=== PATIENT | male | born 1990 | race Caucasian/White ===

== ENCOUNTER 2016-09-05 11:45 | Emergency (ER) | payer OTHER ==
--- NOTE | 2016-09-05 13:41 | ED CLINICAL REPORT ---
Clinical Report - Physicians/Mid Levels [facility] [address] [place] [address] 09/05/2016 11:51 Patient: JANY CONTRERAS JR Time Seen: 13:51 Sep 05 2016. Arrived- By private vehicle. Historian- patient. HISTORY OF PRESENT ILLNESS Chief Complaint: COUGH. 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 The illness is described as mild. The patient has had a cough, a sore throat and nasal congestion. No fever or chills. (Patient reports generalized hot and cold flushes, rhinorrhea times congestion, and time sore throat, with a dry cough over the last 2 days.). Additional history - The patient has had contact with a sick individual. (family). REVIEW OF SYSTEMS No headache, nausea, diarrhea, hay fever or skin rash. All systems otherwise negative, except as recorded above. SOCIAL HISTORY Smoker- current status unknown. Alcohol use. History of drug use. ADDITIONAL NOTES The nursing notes have been reviewed. PHYSICAL EXAM Vital Signs: 09/05/2016 13:22 BP: 131/75. HR: 51. RR: 18. O2 saturation: 98%. Temp: 97.9 F. Pain level now: 0/10. Appearance: Alert. Eyes: Eyes normal inspection. ENT: Ears normal. Nose normal. Pharynx normal. Uvula midline. No tonsillar exudate, peritonsillar mass or muffled or hoarse voice. Neck: Normal inspection. No lymphadenopathy. CVS: Normal heart rate and rhythm. Heart sounds normal. Respiratory: No respiratory distress. Breath sounds normal. No retractions or splinting. Skin: Skin warm. Normal skin color. PROGRESS AND PROCEDURES Course of Care: Afebrile patient in the ER, with good saturation, no distress. Stable. To follow up outpatient. Lungs clear. No signs of pneumonia. No indication for further acute tx, viral eitology, at this time less likely influenza given obvious fevers. 09/05/2016 13:22 BP: 131/75. HR: 51. RR: 18. O2 saturation: 98%. Temp: 97.9 F. Pain level now: 0/10. Patient is stable. Physical exam findings are improved. Symptoms better. Patient/family counseled. Disposition: Discharged. CLINICAL IMPRESSION Acute rhinitis. INSTRUCTIONS Rest. Return to work (may return to work 09/06/2016 or 09/05/2016 after 3 pm). Drink plenty of fluids. Do not smoke. ( [facility]). OTC Medications: Take OTC medications according to label instructions. Available over the counter. Acetaminophen (available over the counter): take according to label instructions. Motrin (available over the counter): take according to label instructions. Follow-up: Follow up with your doctor in three days. (Electronically signed by Lilian Lott P.A.-C 09/05/2016 14:08)
--- NOTE | 2016-09-05 13:41 | ED NURSING NOTES ---
Clinical Report - Nurses [facility] [address] [place] [address] 09/05/2016 11:51 Patient: JANY CONTRERAS JR TRIAGE Triage time 1322 PM. Acuity: LEVEL 4. Chief Complaint: "FLU", COUGH, SORE THROAT and BODY ACHES and known FLU EXPOSURE. Alert. No acute distress. BRONSON COMA SCORE: [place] Coma Scale: 15- eyes open spontaneously (4); best verbal response- oriented x 4 (5); best motor response- obeys commands (6). --13:34 Elisa Marion R.N. 13:22 09/05/16. BP: 131/75 (large adult cuff) taken on the left arm, via an automated monitor, while sitting. HR: 51. RR: 18. O2 saturation: 98% on room air. Temp: 97.9 F (oral). Pain level now: 0/10. --13:34 Elisa Marion R.N. Weight: 121.5 kg stated. Height/Length: 71 inches Per Patient. BMI: 37.4. --13:27 Elisa Marion R.N. Medications None. --13:25 Elisa Marion R.N. Medication/allergy information source: the patient. --13:34 Elisa Marion R.N. Allergies Nasal sprau unsure of the name. --13:24 Elisa Marion R.N. History Arrived by private vehicle. Historian: patient. ( Pt states feeling like coming down with the "flu, grandparents have bronchitis and the flu" Pt states symptoms started two days ago, body aches, sweating, unsure if his had a fever, abdominal pain, n/ no vomiting. Coming in to get check out.). Onset was abrupt. (2 days). He has had chest congestion, chills, fatigue, a headache and abdominal pain. 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 SOCIAL HX: Light tobacco smoker- less than 1/2 a pack per day. Heavy alcohol use; consumes 12-pack of beer a day. History of occasional drug use: marijuana. No recent travel. He has had contact with a sick family member with confirmed "flu". (grandparents one has flu and bronchitis). SELF HARM ASSESSMENT: A self harm assessment was performed. The patient answered "no" to the question "Do you have thoughts of harming or killing yourself?" and "Have you recently had thoughts about harming or killing others?". FALL RISK ASSESSMENT: Fall risk assessment completed. No fall risk identified. NUTRITIONAL RISK ASSESSMENT: The nutritional risk assessment revealed no deficiencies. FUNCTIONAL ASSESSMENT: Functional assessment: no impairments noted. LEARNING NEEDS ASSESSMENT: The learning needs assessment revealed no barriers. SKIN INTEGRITY ASSESSMENT: Skin integrity risk assessment completed. No skin integrity risk identified. --13:34 Elisa Marion R.N. PROBLEMS: Migraine Headache. --13:26 Elisa Marion R.N. Interventions ID band on patient. --13:34 Elisa Marion R.N. PHYSICAL ASSESSMENT GENERAL / NEURO / PSYCH: Alert. Oriented X 4. Appears in no acute distress. HEENT: Pupils equal, round and reactive to light. Mucous membranes are pink. RESPIRATORY: Nonproductive cough. Chest nontender. Breath sounds within normal limits. CVS: Capillary refill less than 2 seconds. SKIN: Skin is warm and dry. Normal skin turgor. --13:35 Elisa Marion R.N. NURSING PROGRESS NOTES The initial plan of care for this patient has been created This plan of care was discussed with the patient. Reassurance given. Two patient identifiers checked. Call light placed in reach. Side rails up x 1. Brakes of bed on. Brakes of chair on. --13:36 Elisa Marion R.N. DISPOSITION / DISCHARGE 13:45 09/05/16. Condition at departure: unchanged and stable. The goals identified in the patient's plan of care were met. No learning barriers present. Discharge instructions provided and reviewed with the patient. Reviewed referral to a primary care physician for followup. Patient verbalized understanding. Written instructions provided in Albanian. The patient was discharged home and accompanied by local flatbed driver. He left the Emergency Department ambulatory and via private vehicle. Spud Sorter driving. FALL RISK ASSESSMENT: Fall risk assessment completed. No fall risk identified. --13:45 Radha Braga R.N. 13:22 09/05/16. BP: 131/75 (large adult cuff) taken on the left arm, via an automated monitor, while sitting. HR: 51. RR: 18. O2 saturation: 98% on room air. Temp: 97.9 F (oral). Pain level now: 0/10. --13:45 Radha Braga R.N. Work note given (ok to return to work). --13:45 Radha Braga R.N. Locked/Released at 09/05/2016 13:46 by Radha Braga R.N.
--- NOTE | 2016-09-05 13:41 | ED CLINICAL REPORT ---
Clinical Report - Physicians/Mid Levels [facility] [address] [place] [address] 09/05/2016 11:51 Patient: JANY CONTRERAS JR Time Seen: 13:51 Sep 05 2016. Arrived- By private vehicle. Historian- patient. HISTORY OF PRESENT ILLNESS Chief Complaint: COUGH. 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 The illness is described as mild. The patient has had a cough, a sore throat and nasal congestion. No fever or chills. (Patient reports generalized hot and cold flushes, rhinorrhea times congestion, and time sore throat, with a dry cough over the last 2 days.). Additional history - The patient has had contact with a sick individual. (family). REVIEW OF SYSTEMS No headache, nausea, diarrhea, hay fever or skin rash. All systems otherwise negative, except as recorded above. SOCIAL HISTORY Smoker- current status unknown. Alcohol use. History of drug use. ADDITIONAL NOTES The nursing notes have been reviewed. PHYSICAL EXAM Vital Signs: 09/05/2016 13:22 BP: 131/75. HR: 51. RR: 18. O2 saturation: 98%. Temp: 97.9 F. Pain level now: 0/10. Appearance: Alert. Eyes: Eyes normal inspection. ENT: Ears normal. Nose normal. Pharynx normal. Uvula midline. No tonsillar exudate, peritonsillar mass or muffled or hoarse voice. Neck: Normal inspection. No lymphadenopathy. CVS: Normal heart rate and rhythm. Heart sounds normal. Respiratory: No respiratory distress. Breath sounds normal. No retractions or splinting. Skin: Skin warm. Normal skin color. PROGRESS AND PROCEDURES Course of Care: Afebrile patient in the ER, with good saturation, no distress. Stable. To follow up outpatient. Lungs clear. No signs of pneumonia. No indication for further acute tx, viral eitology, at this time less likely influenza given obvious fevers. 09/05/2016 13:22 BP: 131/75. HR: 51. RR: 18. O2 saturation: 98%. Temp: 97.9 F. Pain level now: 0/10. Patient is stable. Physical exam findings are improved. Symptoms better. Patient/family counseled. Disposition: Discharged. CLINICAL IMPRESSION Acute rhinitis. INSTRUCTIONS Rest. Return to work (may return to work 09/06/2016 or 09/05/2016 after 3 pm). Drink plenty of fluids. Do not smoke. ( [facility] OTC Medications: Take OTC medications according to label instructions. Available over the counter. Acetaminophen (available over the counter): take according to label instructions. Motrin (available over the counter): take according to label instructions. Follow-up: Follow up with your doctor in three days. (Electronically signed by Lilian Lott P.A.-C 09/05/2016 14:08)
--- NOTE | 2016-09-05 13:41 | ED NURSING NOTES ---
Clinical Report - Nurses [facility] [address] [place] [address] 09/05/2016 11:51 Patient: JANY CONTRERAS JR TRIAGE Triage time 1322 PM. Acuity: LEVEL 4. Chief Complaint: "FLU", COUGH, SORE THROAT and BODY ACHES and known FLU EXPOSURE. Alert. No acute distress. BRONSON COMA SCORE: [place] Coma Scale: 15- eyes open spontaneously (4); best verbal response- oriented x 4 (5); best motor response- obeys commands (6). --13:34 Elisa Marion R.N. 13:22 09/05/16. BP: 131/75 (large adult cuff) taken on the left arm, via an automated monitor, while sitting. HR: 51. RR: 18. O2 saturation: 98% on room air. Temp: 97.9 F (oral). Pain level now: 0/10. --13:34 Elisa Marion R.N. Weight: 121.5 kg stated. Height/Length: 71 inches Per Patient. BMI: 37.4. --13:27 Elisa Marion R.N. Medications None. --13:25 Elisa Marion R.N. Medication/allergy information source: the patient. --13:34 Elisa Marion R.N. Allergies Nasal sprau unsure of the name. --13:24 Elisa Marion R.N. History Arrived by private vehicle. Historian: patient. ( Pt states feeling like coming down with the "flu, grandparents have bronchitis and the flu" Pt states symptoms started two days ago, body aches, sweating, unsure if his had a fever, abdominal pain, n/ no vomiting. Coming in to get check out.). Onset was abrupt. (2 days). He has had chest congestion, chills, fatigue, a headache and abdominal pain. 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 SOCIAL HX: Light tobacco smoker- less than 1/2 a pack per day. Heavy alcohol use; consumes 12-pack of beer a day. History of occasional drug use: marijuana. No recent travel. He has had contact with a sick family member with confirmed "flu". (grandparents one has flu and bronchitis). SELF HARM ASSESSMENT: A self harm assessment was performed. The patient answered "no" to the question "Do you have thoughts of harming or killing yourself?" and "Have you recently had thoughts about harming or killing others?". FALL RISK ASSESSMENT: Fall risk assessment completed. No fall risk identified. NUTRITIONAL RISK ASSESSMENT: The nutritional risk assessment revealed no deficiencies. FUNCTIONAL ASSESSMENT: Functional assessment: no impairments noted. LEARNING NEEDS ASSESSMENT: The learning needs assessment revealed no barriers. SKIN INTEGRITY ASSESSMENT: Skin integrity risk assessment completed. No skin integrity risk identified. --13:34 Elisa Marion R.N. PROBLEMS: Migraine Headache. --13:26 Elisa Marion R.N. Interventions ID band on patient. --13:34 Elisa Marion R.N. PHYSICAL ASSESSMENT GENERAL / NEURO / PSYCH: Alert. Oriented X 4. Appears in no acute distress. HEENT: Pupils equal, round and reactive to light. Mucous membranes are pink. RESPIRATORY: Nonproductive cough. Chest nontender. Breath sounds within normal limits. CVS: Capillary refill less than 2 seconds. SKIN: Skin is warm and dry. Normal skin turgor. --13:35 Elisa Marion R.N. NURSING PROGRESS NOTES The initial plan of care for this patient has been created This plan of care was discussed with the patient. Reassurance given. Two patient identifiers checked. Call light placed in reach. Side rails up x 1. Brakes of bed on. Brakes of chair on. --13:36 Elisa Marion R.N. DISPOSITION / DISCHARGE 13:45 09/05/16. Condition at departure: unchanged and stable. The goals identified in the patient's plan of care were met. No learning barriers present. Discharge instructions provided and reviewed with the patient. Reviewed referral to a primary care physician for followup. Patient verbalized understanding. Written instructions provided in Turkish. The patient was discharged home and accompanied by child day care provider. He left the Emergency Department ambulatory and via private vehicle. Corporate Bond Trader driving. FALL RISK ASSESSMENT: Fall risk assessment completed. No fall risk identified. --13:45 Radha Braga R.N. 13:22 09/05/16. BP: 131/75 (large adult cuff) taken on the left arm, via an automated monitor, while sitting. HR: 51. RR: 18. O2 saturation: 98% on room air. Temp: 97.9 F (oral). Pain level now: 0/10. --13:45 Radha Braga R.N. Work note given (ok to return to work). --13:45 Radha Braga R.N. Locked/Released at 09/05/2016 13:46 by Radha Braga R.N.
--- NOTE | 2016-09-05 14:08 | ED MED RECONCILIATION SUMMARY ---
Patient: JANY CONTRERAS JR Medication Reconciliation Report [facility] VisitID: [id number] [address] [place] [address] 25y, M Registration Date/Time: 09/05/2016 Weight: 121.5 kg Height/Length: 71 in. BMI: 37.4 ALLERGIES: Nasal sprau unsure of the name The patient's Home Medications are listed below: NONE. The source(s) of the original Home Medication information: patient The following Medications were given to the patient in the Emergency Department: None. The following Medications were prescribed to the patient: Take OTC medications according to label instructions. Available over the counter. -- Kaylie, Lilian, P.A.-C Acetaminophen (available over the counter): take according to label instructions. -- Lilian Lott, P.A.-C Motrin (available over the counter): take according to label instructions. -- Lilian Lott, P.A.-C
--- NOTE | 2016-09-05 14:08 | ED DISCHARGE INSTRUCTIONS ---
Patient: JANY CONTRERAS General Instructions [facility] VisitID: [id number] [place] [address] 25y, M Registration Date/Time: 09/05/2016 Acute rhinitis. INSTRUCTIONS Rest. Return to work (may return to work 09/06/2016 or 09/05/2016 after 3 pm). Drink plenty of fluids. Do not smoke. ( [facility]). OTC Medications: Take OTC medications according to label instructions. Available over the counter. Acetaminophen (available over the counter): take according to label instructions. Motrin (available over the counter): take according to label instructions. Follow-up: Follow up with your doctor in three days. ADDITIONAL INFORMATION Viral Respiratory Illness [Adult] You have an Upper Respiratory Illness (URI) caused by a virus. This illness is contagious during the first few days. It is spread through the air by coughing and sneezing or by direct contact (touching the sick person and then touching your own eyes, nose or mouth). Most viral illnesses go away within 7-10 days with rest and simple home remedies. Sometimes, the illness may last for several weeks. Antibiotics will not kill a virus and are generally not prescribed for this condition. Home Care: 1) If symptoms are severe, rest at home for the first 2-3 days. When you resume activity, don't let yourself get too tired. 2) Avoid being exposed to cigarette smoke (yours or others). 3) Tylenol (acetaminophen) or ibuprofen (Advil, Motrin) will help fever, muscle aching and headache. (Persons under 18 with fever should not take aspirin since this may cause liver damage.) 4) Your appetite may be poor, so a light diet is fine. Avoid dehydration by drinking 6-8 glasses of fluids per day (water, soft drinks, juices, tea, soup). Extra fluids will help loosen secretions in the nose and lungs. 5) Zlzi-ppz-aroyahl cold medicines will not shorten the length of time youre sick, but they may be helpful for the following symptoms: cough (Robitussin DM); sore throat (Chloraseptic lozenges or spray); nasal and sinus congestion (Actifed, Sudafed, Chlortrimeton). Follow Up with your doctor or as advised if you dont improve over the next week. Get Prompt Medical Attention if any of the following occur: -- Cough with lots of colored sputum (mucus) or blood in your sputum -- Chest pain, shortness of breath, wheezing or have trouble breathing -- Severe headache; face, neck or ear pain -- Fever over 100.4 F (38.0 C) for more than three days -- You cant swallow due to throat pain [place] Diet A bland diet is used for patients with an upset stomach. It consists of foods that are mild and easy to digest. It is better to eat small frequent meals rather than three large meals a day. BEVERAGES OK: Fruit juices, non-caffeinated teas and coffee, non-carbonated field AVOID: Carbonated beverage, caffeinated tea and coffee, all alcoholic beverages BREAD OK: Refined white, wheat or rye bread, dylon or soda crackers, [place] toast, plain rolls, bagels AVOID: Whole-grain bread CEREAL OK: Refined cereals: cooked or ready to eat AVOID: Whole grain cereals and granola, or those containing bran, seeds or nuts DESSERTS OK: Peanut butter and all others except those to "avoid" AVOID: Chocolate, cocoa, coconut, popcorn, nuts, seeds, jam, marmalade FRUITS OK: Canned, cooked, frozen or fresh fruits without seeds or tough skin AVOID: Olives, skin and seeds of fruit MEATS OK: All fresh or preserved meat, fish and fowl AVOID: Any that are prepared with those spices to "avoid" CHEESE & EGGS OK: Eggs, cottage cheese, cream cheese, other cheeses AVOID: All cheeses made with those spices to "avoid" POTATOES & PASTA OK: Potato, rice, macaroni, noodles, spaghetti AVOID: None SOUPS OK: All soups without heavy seasoning AVOID: Soups made with those spices to "avoid" VEGETABLES OK: Canned, cooked, fresh or frozen mildly flavored vegetables without seeds, skins or coarse fiber AVOID: Vegetables prepared with those spices to "avoid"; skin and seeds of vegetables and those with coarse fiber SPICES OK: Salt, lemon and [place] juice, vinegar, all extracts, malilka, cinnamon, thyme, mace, allspice, paprika AVOID: Mcgill powder, cloves, pepper, seed spices, garlic, gravy pickles, highly seasoned salad dressings Clear Liquid Diet Clear liquids are any liquid that you can see through as well as those that are very easy to digest. This is used while the body is recovering from irritation or infection of the stomach or intestinal tract. It may also be used before special procedures or surgery. This diet is to be used no more than three days. You may include the following items. Adults Adults should drink a total of 23 quarts of liquid per day. It may be easier to drink small frequent servings rather than a few large ones. Liquids can include: Fruit juices.Strained orange juice or lemonade (no pulp), apple, grape and cranberry juice, clear fruit drinks, sports drinks Beverages.Sport drinks, sodas, mineral water (plain or flavored), tea, black coffee, liquid gelatin (add twice the recommended amount of water) Soups.Clear broth, consomm, bouillon Desserts.Plain gelatin, popsicles, fruit juice bars Children Over 2 years old The following liquids are acceptable for children over age 2: Fruit juices.Strained orange juice or lemonade (no pulp), apple, grape and cranberry juice, clear fruit drinks Beverages. Sports drinks, sodas, mineral water (plain or flavored), tea, liquid gelatin (add twice the recommended amount of water) Soups. Clear broth, consomm, bouillon Desserts. Plain gelatin, popsicles, fruit juice bars Children under 2 years old Oral rehydration fluids such are available at drug stores and most grocery stores without a prescription. You have been given the following additional information: Uri, Viral, No Abx (Adult) Diet, [place] (Adult) Diet, Clear Liquid Rest. Return to work (may return to work 09/06/2016 or 09/05/2016 after 3 pm). (Electronically signed by Lilian Lott P.A.-C 09/05/2016 14:08)
--- NOTE | 2016-09-05 14:08 | ED MAR SUMMARY ---
..... Medication Administration Record [facility] [address], [place] [id number] Patient: JANY CONTRERAS Visit ID: [id number] 25y, M Weight: 121.5 kg Height/Length: 71 in BMI: 37.4 ALLERGIES: Nasal sprau unsure of the name
--- NOTE | 2016-09-05 14:08 | ED MED RECONCILIATION SUMMARY ---
Patient: AJNY CONTRERAS JR Medication Reconciliation Report [facility] VisitID: [id number] [address] [place] [address] 25y, M Registration Date/Time: 09/05/2016 Weight: 121.5 kg Height/Length: 71 in. BMI: 37.4 ALLERGIES: Nasal sprau unsure of the name The patient's Home Medications are listed below: NONE. The source(s) of the original Home Medication information: patient The following Medications were given to the patient in the Emergency Department: None. The following Medications were prescribed to the patient: Take OTC medications according to label instructions. Available over the counter. -- Kaylie, Lilian, P.A.-C Acetaminophen (available over the counter): take according to label instructions. -- Lilian Lott, P.A.-C Motrin (available over the counter): take according to label instructions. -- Lilian Lott, P.A.-C
--- NOTE | 2016-09-05 14:08 | ED DISCHARGE INSTRUCTIONS ---
Patient: JANY CONTRERAS General Instructions [facility] VisitID: [id number] [place] [address] 25y, M Registration Date/Time: 09/05/2016 Acute rhinitis. INSTRUCTIONS Rest. Return to work (may return to work 09/06/2016 or 09/05/2016 after 3 pm). Drink plenty of fluids. Do not smoke. ( [facility]). OTC Medications: Take OTC medications according to label instructions. Available over the counter. Acetaminophen (available over the counter): take according to label instructions. Motrin (available over the counter): take according to label instructions. Follow-up: Follow up with your doctor in three days. ADDITIONAL INFORMATION Viral Respiratory Illness [Adult] You have an Upper Respiratory Illness (URI) caused by a virus. This illness is contagious during the first few days. It is spread through the air by coughing and sneezing or by direct contact (touching the sick person and then touching your own eyes, nose or mouth). Most viral illnesses go away within 7-10 days with rest and simple home remedies. Sometimes, the illness may last for several weeks. Antibiotics will not kill a virus and are generally not prescribed for this condition. Home Care: 1) If symptoms are severe, rest at home for the first 2-3 days. When you resume activity, don't let yourself get too tired. 2) Avoid being exposed to cigarette smoke (yours or others). 3) Tylenol (acetaminophen) or ibuprofen (Advil, Motrin) will help fever, muscle aching and headache. (Persons under 18 with fever should not take aspirin since this may cause liver damage.) 4) Your appetite may be poor, so a light diet is fine. Avoid dehydration by drinking 6-8 glasses of fluids per day (water, soft drinks, juices, tea, soup). Extra fluids will help loosen secretions in the nose and lungs. 5) [id number] cold medicines will not shorten the length of time youre sick, but they may be helpful for the following symptoms: cough (Robitussin DM); sore throat (Chloraseptic lozenges or spray); nasal and sinus congestion (Actifed, Sudafed, Chlortrimeton). Follow Up with your doctor or as advised if you dont improve over the next week. Get Prompt Medical Attention if any of the following occur: -- Cough with lots of colored sputum (mucus) or blood in your sputum -- Chest pain, shortness of breath, wheezing or have trouble breathing -- Severe headache; face, neck or ear pain -- Fever over 100.4 F (38.0 C) for more than three days -- You cant swallow due to throat pain Equality Diet A bland diet is used for patients with an upset stomach. It consists of foods that are mild and easy to digest. It is better to eat small frequent meals rather than three large meals a day. BEVERAGES OK: Fruit juices, non-caffeinated teas and coffee, non-carbonated field AVOID: Carbonated beverage, caffeinated tea and coffee, all alcoholic beverages BREAD OK: Refined white, wheat or rye bread, dylon or soda crackers, [place] toast, plain rolls, bagels AVOID: Whole-grain bread CEREAL OK: Refined cereals: cooked or ready to eat AVOID: Whole grain cereals and granola, or those containing bran, seeds or nuts DESSERTS OK: Peanut butter and all others except those to "avoid" AVOID: Chocolate, cocoa, coconut, popcorn, nuts, seeds, jam, marmalade FRUITS OK: Canned, cooked, frozen or fresh fruits without seeds or tough skin AVOID: Olives, skin and seeds of fruit MEATS OK: All fresh or preserved meat, fish and fowl AVOID: Any that are prepared with those spices to "avoid" CHEESE & EGGS OK: Eggs, cottage cheese, cream cheese, other cheeses AVOID: All cheeses made with those spices to "avoid" POTATOES & PASTA OK: Potato, rice, macaroni, noodles, spaghetti AVOID: None SOUPS OK: All soups without heavy seasoning AVOID: Soups made with those spices to "avoid" VEGETABLES OK: Canned, cooked, fresh or frozen mildly flavored vegetables without seeds, skins or coarse fiber AVOID: Vegetables prepared with those spices to "avoid"; skin and seeds of vegetables and those with coarse fiber SPICES OK: Salt, lemon and [place] juice, vinegar, all extracts, [place]ika, cinnamon, thyme, mace, allspice, paprika AVOID: [place] powder, cloves, pepper, seed spices, garlic, gravy pickles, highly seasoned salad dressings Clear Liquid Diet Clear liquids are any liquid that you can see through as well as those that are very easy to digest. This is used while the body is recovering from irritation or infection of the stomach or intestinal tract. It may also be used before special procedures or surgery. This diet is to be used no more than three days. You may include the following items. Adults Adults should drink a total of 23 quarts of liquid per day. It may be easier to drink small frequent servings rather than a few large ones. Liquids can include: Fruit juices.Strained orange juice or lemonade (no pulp), apple, grape and cranberry juice, clear fruit drinks, sports drinks Beverages.Sport drinks, sodas, mineral water (plain or flavored), tea, black coffee, liquid gelatin (add twice the recommended amount of water) Soups.Clear broth, consomm, bouillon Desserts.Plain gelatin, popsicles, fruit juice bars Children Over 2 years old The following liquids are acceptable for children over age 2: Fruit juices.Strained orange juice or lemonade (no pulp), apple, grape and cranberry juice, clear fruit drinks Beverages. Sports drinks, sodas, mineral water (plain or flavored), tea, liquid gelatin (add twice the recommended amount of water) Soups. Clear broth, consomm, bouillon Desserts. Plain gelatin, popsicles, fruit juice bars Children under 2 years old Oral rehydration fluids such are available at drug stores and most grocery stores without a prescription. You have been given the following additional information: Uri, Viral, No Abx (Adult) Diet, Equality (Adult) Diet, Clear Liquid Rest. Return to work (may return to work 09/06/2016 or 09/05/2016 after 3 pm). (Electronically signed by Lilian Lott P.A.-C 09/05/2016 14:08)
--- NOTE | 2016-09-05 14:08 | ED MAR SUMMARY ---
..... Medication Administration Record [facility] [address] [place], [place] [id number] Patient: JANY CONTRERAS Visit ID: [id number] 25y, M Weight: 121.5 kg Height/Length: 71 in BMI: 37.4 ALLERGIES: Nasal sprau unsure of the name
== END 2016-09-05 13:46 | disposition home or self-care (01) ==
LOC: ED SRH 11:45
DX: J00 Acute nasopharyngitis [common cold] (principal); F17.200 Nicotine dependence, unspecified, uncomplicated